=== PATIENT | male | born 1955 | race Caucasian/White ===

== ENCOUNTER 2020-05-27 08:24 | Emergency (ER) | payer MEDICAID ==
[~2020-05-27] VITALS: Ht 177.8 cm; Wt 79.0 kg
[~2020-05-27 08:24] MED LIST: AMLO10TA80 PO; ATEN50TA PO; ATOR20TA PO; GABA-531 PO; IPRA0.2S51 IH; MECL-183 PO; MELO-106 PO; PANT40TA4 PO; RIVA20TA PO
[2020-05-27] MEDS ORDERED: HYDROCODONE/ACETAMINOPHEN 5/325MG TABLET PO ONE (09:00)
[2020-05-27 10:39] LABS: BASOPHILS % 0.3 % (0.0-2.0); EOSINOPHILS % 0.5 % (0.0-5.0); HEMATOCRIT. 41.7 % (42.0-52.0); HEMOGLOBIN. 14.6 g/dL (14.0-18.0); LYMPHOCYTES % 8.8 % (20.0-50.0); MEAN CORPUSCULAR HEMOGLOBIN 33.9 pg (28.0-32.0); MEAN CORPUSCULAR VOLUME 96.7 fL (80.0-94.0); MEAN PLATELET VOLUME 8.4 fl (7.4-10.4); MONOCYTES % 9.1 % (2.0-8.0); NEUTROPHILS % 81.3 % (40.0-76.0); PLATELET 182 x1000/uL (130-400); RED BLOOD CELL COUNT 4.32 mill/uL (4.7-6.1); RED CELL DISTRIBUTION WIDTH 14.6 % (11.6-14.6)
[2020-05-27 10:46] LABS: CHLORIDE 97 mEq/L (98-107)
[2020-05-27 10:50] VITALS: BP 144/61
[2020-05-27 10:51] LABS: INR 1.1; PARTIAL THROMBOPLASTIN TIME 31.2 sec (23.4-31.0); PROTHROMBIN TIME 11.3 sec (9.6-11.0)
== END 2020-05-27 11:59 ==
LOC: ER 08:24
DX: S72.431A Displaced fracture of medial condyle of right femur, initial encounter for closed fracture (principal); I10 Essential (primary) hypertension; Z79.899 Other long term (current) drug therapy; W01.0XXA Fall on same level from slipping, tripping and stumbling without subsequent striking against object, initial encounter; Y93.89 Activity, other specified; Y92.89 Other specified places as the place of occurrence of the external cause; Y99.8 Other external cause status
CPT/HCPCS: 36415; 73552; 73562; 73610; 80053; 85025; 93970; 99285

== ENCOUNTER 2021-02-01 10:25 | Emergency (ER) | payer MEDICAID ==
[~2021-02-01] VITALS: Ht 172.7 cm; Wt 86.0 kg
[~2021-02-01 10:25] MED LIST changes: -GABA-531 PO; +GABA-532 PO; -MECL-183 PO; +MECL-217 PO; -PANT40TA4 PO; +PANT40TA51 PO
[2021-02-01] MEDS ORDERED: HYDROCODONE/ACETAMINOPHEN 5/325MG TABLET PO STA (11:33)
[2021-02-01] MEDS ORDERED: IBUPROFEN 600MG TABLET PO STA (14:53)
[2021-02-01] MEDS ORDERED: SULF1TAB48 PO (15:13)
[2021-02-01] MEDS ORDERED: HYDR-4346 PO (15:13)
[2021-02-01] MEDS ORDERED: CEPH500C2 MT (15:13)
[2021-02-01 15:40] VITALS: BP 146/72
== END 2021-02-01 15:42 | disposition home or self-care (01) ==
LOC: ER 10:25
DX: L03.116 Cellulitis of left lower limb (principal); M25.572 Pain in left ankle and joints of left foot; J45.909 Unspecified asthma, uncomplicated; E78.00 Pure hypercholesterolemia, unspecified; I10 Essential (primary) hypertension; Z79.899 Other long term (current) drug therapy
CPT/HCPCS: 73610; 93971; 99284

== ENCOUNTER 2021-07-21 10:43 | Emergency (ER) | payer MEDICAID, MEDICARE ==
[~2021-07-21] VITALS: Ht 175.3 cm; Wt 91.0 kg
[~2021-07-21 10:43] MED LIST changes: +CEPH500C2 MT; +HYDR-4346 PO; +SULF1TAB48 PO
[2021-07-21] MEDS ORDERED: KETOROLAC 30MG/ML VIAL IM ONE (12:30)
[2021-07-21] MEDS ORDERED: ACET-2708 MT (15:15)
[2021-07-21 16:11] VITALS: BP 147/88
== END 2021-07-21 16:13 | disposition home or self-care (01) ==
LOC: ER 10:43
DX: M79.642 Pain in left hand (principal); M25.532 Pain in left wrist; M25.531 Pain in right wrist; E78.00 Pure hypercholesterolemia, unspecified; I10 Essential (primary) hypertension; J45.909 Unspecified asthma, uncomplicated; Z98.890 Other specified postprocedural states; Z79.899 Other long term (current) drug therapy
CPT/HCPCS: 29125; 73110; 73130; 96372; 99284; J1885

== ENCOUNTER 2022-10-12 12:26 | Emergency (ER) | payer MEDICARE, MEDICAID ==
[~2022-10-12] VITALS: Ht 177.8 cm; Wt 89.0 kg
[~2022-10-12 12:26] MED LIST changes: +ACET-2708 MT
[2022-10-12] MEDS ORDERED: IBUPROFEN 600MG TABLET PO ONE (19:30)
[2022-10-12 20:53] LABS: BASOPHILS % 0.7 % (0.0-2.0); EOSINOPHILS % 4.6 % (0.0-5.0); HEMOGLOBIN. 13.5 g/dL (14.0-18.0); LYMPHOCYTES % 28.9 % (20.0-50.0); MEAN CORPUSCULAR HEMOGLOBIN 28.5 pg (28.0-32.0); MEAN CORPUSCULAR VOLUME 86.5 fL (80.0-94.0); MEAN PLATELET VOLUME 8.6 fl (7.4-10.4); MONOCYTES % 8.8 % (2.0-8.0); PLATELET 226 x1000/uL (130-400); RED BLOOD CELL COUNT 4.74 mill/uL (4.7-6.1); RED CELL DISTRIBUTION WIDTH 15.6 % (11.6-14.6)
[2022-10-12 21:02] LABS: CHLORIDE 107 mEq/L (98-107)
[2022-10-12] MEDS ORDERED: IBUP-2029 MT (22:56)
[2022-10-12] MEDS ORDERED: CEPH500C2 MT (22:56)
[2022-10-12 23:08] VITALS: BP 109/51
[2022-10-12] MEDS ORDERED: IBUPROFEN 600MG TABLET PO NR (23:15)
== END 2022-10-12 23:14 | disposition home or self-care (01) ==
LOC: ER 12:26
DX: L03.115 Cellulitis of right lower limb (principal); J45.909 Unspecified asthma, uncomplicated; E78.00 Pure hypercholesterolemia, unspecified; I10 Essential (primary) hypertension; Z98.890 Other specified postprocedural states; Z79.899 Other long term (current) drug therapy
CPT/HCPCS: 36415; 80053; 85025; 99283